=== PATIENT | female | born 1985 | race African-American/Black ===

== ENCOUNTER 2019-12-27 22:29 | Emergency (ER) | payer OTHER ==
[~2019-12-27] VITALS: Ht 157.5 cm; Wt 79.4 kg
[2019-12-27] MEDS ORDERED: ORTHO TRI-CYCL1 EACH PO (22:47)
[2019-12-27 23:17] LABS: ABSOLUTE NEUTROPHILS 4.2 thou/uL (1.4-8.2); BASOPHILS 1.5 % (0.0-2.0); EOSINOPHILS 0.6 % (0.0-3.0); HEMATOCRIT 35.1 % (37.0-47.0); HEMOGLOBIN 12.2 gm/dL (12.0-15.0); LYMPHOCYTES 32.4 % (24.0-44.0); MCH 31.1 pg (26.0-34.0); MCHC 34.6 g/dL (28.0-37.0); MCV 89.9 fL (80.0-100.0); MONOCYTES 6.4 % (1.0-8.0); PLATELET COUNT 395 thou/uL (150-400); POLYS 59.1 % (36.0-66.0); RDW 13.2 % (10.5-14.5)
[2019-12-27 23:36] LABS: ALBUMIN 3.3 g/dL (3.4-5.0); ANION GAP 10 mmol/L (7-16); BUN 15 mg/dL (7-18); CALCIUM 8.9 mg/dL (8.5-10.1); CHLORIDE 103 mmol/L (98-107); CO2 25 mmol/L (21-32); DIRECT BILIRUBIN < 0.1 mg/dL (<0.1-0.2); GLUCOSE 90 mg/dL (74-106); LIPASE 79 U/L (73-393); POTASSIUM 3.5 mmol/L (3.5-5.1); SGOT 19 U/L (15-37); SODIUM 138 mmol/L (136-145); TOTAL BILIRUBIN 0.2 mg/dL (<0.1-1.0); TOTAL PROTEIN 7.4 g/dL (6.4-8.2); TROPONIN-I <0.06 ng/mL (<0.06)
[2019-12-27 23:46] LABS: SGPT 24 U/L (30-65)
[2019-12-28 00:48] VITALS: BP 114/75
--- NOTE | 2019-12-28 10:57 | EKG ---
[facility] [place] [address] ELECTROCARDIOGRAM REPORT Name: JAMISON CHAN Room #: DEP [facility]#: [id number] Admission: 12/27/19 Attend Phys: Discharge: 12/28/19 Date of : 81 Report #: [id number] THIS REPORT FOR: cc: FAM - No family physician/PCP FAM - No family physician/PCP Shabbir Miranda MD [facility] THIS REPORT FOR: //name// [facility] ED Test Date: 2019-12-27 Test Time: 23:13:19 Pat Name: JAMISON CHAN Department: Room: Gender: Medical Claims Representative: : 1985 Requested By: Maty Jain Order Number: [id number] MD: Shabbir Miranda Measurements Intervals [place] Rate: 67 P: 65 DC: 146 QRS: 44 QRSD: 85 T: 28 QT: 418 QTc: 442 Interpretive Statements Sinus rhythm Normal tracing No previous ECG available for comparison Electronically Signed On 12-28-2019 10:56:15 CDT by Shabbir Miranda [email or web address] <ELECTRONICALLY SIGNED> By: Shabbir Miranda MD, [facility] 12/28/19 1056 12 12 Shabbir Miranda MD, FACC /EPI
== END 2019-12-28 00:41 | disposition home or self-care (01) ==
LOC: ER 22:29
PROVIDERS: Emergency Medicine
DX: K21.9 Gastro-esophageal reflux disease without esophagitis (principal); Z79.899 Other long term (current) drug therapy

== ENCOUNTER 2020-06-08 02:26 | Emergency (ER) | payer OTHER ==
[~2020-06-08] VITALS: Ht 157.5 cm; Wt 79.4 kg
[~2020-06-08 02:26] MED LIST: ORTHO TRI-CYCL1 EACH PO
[2020-06-08 03:00] LABS: URINE BILIRUBIN NEGATIVE (Negative); URINE BLOOD TRACE (Negative); URINE CLARITY CLEAR; URINE COLOR YELLOW; URINE GLUCOSE-RANDOM* NEGATIVE (Negative); URINE KETONES NEGATIVE (Negative); URINE LEUKOCYTES-REFLEX NEGATIVE (Negative); URINE NITRITE-REFLEX NEGATIVE (Negative); URINE PROTEIN (DIPSTICK) NEGATIVE (Negative); URINE SPECIFIC GRAVITY <= 1.005 (1.005-1.035); URINE UROBILINOGEN 0.2 E.U./dl (0.2-1.0)
[2020-06-08 03:02] LABS: ABSOLUTE NEUTROPHILS 2.2 thou/uL (1.4-8.2); BASOPHILS 2.5 % (0.0-2.0); EOSINOPHILS 1.2 % (0.0-3.0); HEMATOCRIT 37.4 % (37.0-47.0); HEMOGLOBIN 12.6 gm/dL (12.0-15.0); MCH 30.4 pg (26.0-34.0); MCHC 33.8 g/dL (28.0-37.0); MONOCYTES 7.4 % (1.0-8.0); PLATELET COUNT 411 thou/uL (150-400); POLYS 41.9 % (36.0-66.0); RBC 4.16 mil/uL (4.20-5.00); RDW 13.2 % (10.5-14.5); WBC 5.3 thou/uL (4.0-11.0)
[2020-06-08 03:03] LABS: ANION GAP 13 mmol/L (7-16); BUN 16 mg/dL (7-18); CALCIUM 9.2 mg/dL (8.5-10.1); CHLORIDE 103 mmol/L (98-107); CO2 24 mmol/L (21-32); CREATININE 1.2 mg/dL (0.6-1.0); GLUCOSE 95 mg/dL (74-106); POTASSIUM 3.9 mmol/L (3.5-5.1); SODIUM 140 mmol/L (136-145)
[2020-06-08 03:14] LABS: ALBUMIN 3.6 g/dL (3.4-5.0); DIRECT BILIRUBIN < 0.1 mg/dL (<0.1-0.2); SGOT 33 U/L (15-37); SGPT 30 U/L (30-65); TOTAL BILIRUBIN 0.3 mg/dL (0.2-1.0); TOTAL PROTEIN 8.2 g/dL (6.4-8.2); TROPONIN-I <0.06 ng/mL (<0.06)
[2020-06-08] MEDS ORDERED: MOBIC15 MG PO (05:00)
[2020-06-08 05:11] VITALS: BP 118/56
--- NOTE | 2020-06-08 08:14 | EKG ---
[facility] [place] [address] ELECTROCARDIOGRAM REPORT Name: JAMISON CHAN Room #: DEP [facility]#: [id number] Admission: 06/08/20 Attend Phys: Discharge: 06/08/20 Date of : 81 Report #: [id number] THIS REPORT FOR: cc: NO FAMILY PHYSICIAN or PCP NO FAMILY PHYSICIAN or PCP Hai Chow MD [facility] ~ THIS REPORT FOR: //name// [facility] ED Test Date: 2020-06-08 Test Time: 02:41:51 Pat Name: JAMISON CHAN Department: Room: Gender: F Correctional Security Officer: CITLALLI : 1985 Requested By: Maty Jain Order Number: [id number] MD: Hai Chow Measurements Intervals [place] Rate: 78 P: 77 [place]: 144 QRS: 60 QRSD: 78 T: 53 QT: 377 QTc: 430 Interpretive Statements Sinus rhythm Probable left atrial enlargement Low voltage, precordial leads Compared to ECG 12/27/2019 23:13:19 Low QRS voltage now present Electronically Signed On 06-08-2020 8:14:33 CDT by Hai Chow [email or web address] <ELECTRONICALLY SIGNED> By: Hai Chow MD, FACC 06/08/20 0814 0 0 Hai Chow MD, [facility] /[facility]
== END 2020-06-08 05:21 | disposition home or self-care (01) ==
LOC: ER 02:26
PROVIDERS: Emergency Medicine
DX: S29.012A Strain of muscle and tendon of back wall of thorax, initial encounter (principal); R07.9 Chest pain, unspecified; R06.00 Dyspnea, unspecified; X58.XXXA Exposure to other specified factors, initial encounter; Y93.89 Activity, other specified; Y92.89 Other specified places as the place of occurrence of the external cause; Y99.8 Other external cause status